=== PATIENT | female | born 1990 | race Caucasian/White ===

== ENCOUNTER 2019-11-10 09:48 | Outpatient (CLI) | payer OTHER, SELFPAY ==
--- NOTE | ~2019-11-10 | US_ITS ---
EXAMINATION: US OB <=14 wk fetus w TV DATE: 11/10/2019 10:52 INDICATION: Right , first trimester TECHNIQUE: Real-time pelvic transabdominal and transvaginal ultrasound was performed. COMPARISON: None. FINDINGS: The uterus measures 7.1 x 6.3 x 5.3 cm. There is an intrauterine gestational sac. There is a 12 mm x 5 mm x 3 mm hypoechoic area adjacent to the gestational sac A yolk sac is identified. No f etal pole is identified. The mean gestational sac diameter is 9 mm which correlates with an estimated gestational age of 5 weeks and 3 day(s) (+/-) 3 day(s). The right ovary measures 2.7 x 1.4 x 1.7 cm. The left ovary measures 4.3 x 3.1 x 3.4 cm. There is no free fluid in the pelvis. IMPRESSION: 1. Estimated gestational age of 5 weeks and 3 day(s) (+/-) 3 day(s) and an estimated delivery date of 07/09/2020. pole not visualized which could be due to early gestation. 2. Small subchorionic hematoma. 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 Estimated gestational age of 5 weeks and 3 day(s) (+/-) 3 day(s) and an jeremiah mated delivery date of 07/09/2020. pole not visualized which could be due to early gestation. 2. Small subchorionic hematoma.
== END 2019-11-12 12:02 | disposition home or self-care (01) ==
LOC: ANHIMG 10:06 → ANHLAB 10:07 → ANHIMG 11-21 15:48 → ANHLAB 11-21 15:48
PROVIDERS: Advanced Practice Midwife; Visit Provider Obstetrics & Gynecology
DX: O20.0 Threatened abortion (principal); Z3A.00 Weeks of gestation of pregnancy not specified
CPT/HCPCS: 36415; 76801; 76817; 84702